=== PATIENT | female | born 1960 | race Hispanic/Latino ===

== ENCOUNTER 2017-01-05 15:50 | Emergency (ER) | payer BC ==
[2017-01-05] MEDS ORDERED: Adacel (T-DAP) 0.5 ML VIAL ONE (16:16)
== END 2017-01-05 16:51 | disposition home or self-care (01) ==
LOC: BURERS 15:50
DX: L02.212 Cutaneous abscess of back [any part, except buttock and flank] (principal); E03.9 Hypothyroidism, unspecified; I10 Essential (primary) hypertension; Z79.899 Other long term (current) drug therapy
CPT/HCPCS: 10060; 90471; 90715

== ENCOUNTER 2017-01-06 16:22 | Emergency (ER) | payer BC | END 2017-01-06 16:50 | disposition home or self-care (01) | LOC: BURERS 16:22 | DX: S21.209A Unspecified open wound of unspecified back wall of thorax without penetration into thoracic cavity, initial encounter (principal); E03.9 Hypothyroidism, unspecified; I10 Essential (primary) hypertension; Z79.899 Other long term (current) drug therapy; X58.XXXA Exposure to other specified factors, initial encounter | CPT/HCPCS: 99282 ==

== ENCOUNTER 2017-01-08 16:17 | Emergency (ER) | payer BC | END 2017-01-08 16:53 | disposition home or self-care (01) | LOC: BURERS 16:17 | DX: Z48.817 Encounter for surgical aftercare following surgery on the skin and subcutaneous tissue (principal); E03.9 Hypothyroidism, unspecified; I10 Essential (primary) hypertension | CPT/HCPCS: 99282 ==